=== PATIENT | male | born 1990 | race Caucasian/White ===

== ENCOUNTER 2023-05-31 06:44 | Emergency (ER) | payer BC, SELFPAY ==
[2023-05-31 06:52] VITALS: BP 164/94; PULSE 75; RESP 16; TEMP 36.4; O2SAT 98; BMI 42.4
--- NOTE | 2023-05-31 07:08 | ED.GENADULT ---
HPI - General Adult General Chief complaint: Abdominal Pain Stated complaint: RUQ abdominal pain Time Seen by Provider: 05/31/23 07:08 History of Present Illness HPI narrative: RUQ abd pain starting last , comes and goes in waves. patient was initially having some fevers and diarrhea when the symptoms started but those symptoms have mostly resolved. but continues to have episodes of pain. angelo woke this morning and the pain had returned so he decided to come have it checked out before he leaves for a road trip. reports increase in gas and loss of appetite as his only other symptoms. 33-year-old man presenting to the emergency department with concern of abdominal pain; specifically right upper abdominal pain. He described to coming in waves are colicky. Began with this discomfort in this area and DX day had an elevated temp he notes ?low-grade fever? it does seem to mean around 101. Did not have any rash. Did vomit once the following day. Yesterday had diarrhea. Took Pepto-Bismol. Right upper quadrant pain though has persisted. There was a moment where it did seem to wrap around to his back/flank. Has had poor appetite with all of this. Anticipating a road trip in to [facility] soon and wants some reassurance that everything is okay. No family history of gallbladder problems. He has not been drinking alcohol regularly anymore actually it has been at least 3 weeks since he has had a drink of alcohol. Related Data Home Medications Medication Instructions Recorded Confirmed bupropion HCl 300 mg 24 hr tablet, 300 mg PO DAILY 05/31/23 05/31/23 extended release gabapentin 300 mg capsule 300 mg PO DAILY 05/31/23 05/31/23 metformin 500 mg tablet,extended 500 mg PO DAILY 05/31/23 05/31/23 release 24 hr Allergies Allergy/AdvReac Type Severity Reaction Status Date / Time No Known Drug Allergies Allergy Verified 05/31/23 07:03 Review of Systems Status of ROS: Reports: 6 or more systems reviewed and unremarkable except as noted in History and below Exam Narrative: Exam Narrative: Pleasant. Of good energy. Heavily bearded. Wearing a face mask. Breathing easily. Lungs are clear. Heart is in regular rate and rhythm without murmur rub or gallop. Abdomen with present bowel sounds. Overweight. Soft. Negative Nelson's. No masses appreciated. No epigastric tenderness. Pain actually is reproducible along the midclavicular line on the lower rib on the right side. He says this is the general location of his pain. No rashes. Const: Vital Signs, click to edit/add: Vital Signs - 24 hr 05/31/23 06:52 Temperature 97.6 F Pulse Rate [Pulse Oximeter] 75 Respiratory Rate 16 Blood Pressure [Ri ght Upper Arm] 164/94 H Pulse Oximetry 98 Oxygen Delivery Me thod Room Air Documenting provider has reviewed patient's vital signs: yes Course Vital Signs Vital signs: Initial Vital Signs Temperature 97.6 F 05/31/23 06:52 Temperature Source Temporal Artery Scan 05/31/23 06:52 Pulse Rate 75 05/31/23 06:52 Respiratory Rate 16 05/31/23 06:52 Blood Pressure 164/94 H 05/31/23 06:52 Blood Pressure Mean 117 H 05/31/23 06:52 Blood Pressure Position Sitting 05/31/23 06:52 Pulse Oximetry 98 05/31/23 06:52 Oxygen Delivery Method Room Air 05/31/23 06:52 Vital Signs Temperature 97.6 F 05/31/23 06:52 Pulse Rate 75 05/31/23 06:52 Respiratory Rate 16 05/31/23 06:52 Blood Pressure 164/94 H 05/31/23 06:52 Pulse Oximetry 98 05/31/23 06:52 Oxygen Delivery Method Room Air 05/31/23 06:52 Temperature 97.6 F 05/31/23 06:52 Pulse Rate 75 05/31/23 06:52 Respiratory Rate 16 05/31/23 06:52 Blood Pressure 164/94 H 05/31/23 06:52 Pulse Oximetry 98 05/31/23 06:52 Oxygen Delivery Method Room Air 05/31/23 06:52 Medications Administered Medications: Discontinued Medications Generic Name Dose Route Start Last Admin Trade Name Freq PRN Reason Stop Dose Admin Lidocaine 1 patch 05/31/23 08:40 05/31/23 08:51 Lidocaine 5% Patch TRANSDERMA 05/31/23 08:41 1 patch ONCE ONE Administration Protocol Medical Decision Making MDM Narrative Medical decision making narrative: Clearly reproducible pain along the ribs would suggest costochondritis or some other strain perhaps. This may have been associated with vomiting or diarrheal episodes however he reports that this discomfort was the 1st symptom. Has had a momentary/transient flank discomfort but does not otherwise describe any urinary tract symptoms. This could have been radiating around from gallbladder. Doubt vascular disruption. Suspect enteritis type illness. He would like further evaluation for for reassurance particularly in light of upcoming travel. If transaminases or lipase is elevated, would consider limited right upper quadrant/epigastric ultrasound. At this time does not feel he needs anything for pain or nausea. Labs are reassuring. On reassessment his setting in anticipating departure. Considering normal labs and Mr. Gutiérrez appearance, would not think that further evaluation/imaging is necessary at this time. Lidocaine patches might be beneficial; discussed with him and he would like to have one placed to see how it works. See patient discharge plan for further discussion Lab Data Lab results reviewed: Yes I reviewed the patient's lab results Labs: Lab Results 05/31/23 Range/Units 07:29 WBC 6.05 (4.50-11.00) K/uL RBC 5.88 (4.30-5.90) m/uL Hgb 16.3 (13.5-17.5) gm/dL Hct 48.6 (37.0-53.0) % MCV 83 (80-100) fL MCH 28 (26-34) pg MCHC 34 (32-36) gm/dL RDW Coeff of Leonor 12.4 (11.5-15.5) % Plt Count 213 (140-440) K/uL Neut % (Auto) 69.8 (42.0-72.0) % Lymph % (Auto) 23.0 (20-44) % [place] % (Auto) 6.0 (0.0-11.0) % Eos % (Auto) 0.7 (0.0-7.0) % Baso % (Auto) 0.2 (0.0-3.0) % Neut # (Auto) 4.23 (1.7-7.0) K/uL Lymph # (Auto) 1.39 (0.90-2.90) K/uL [place] # (Auto) 0.40 (0.00-0.90) K/UL Eos # (Auto) 0.04 (0.00-0.50) K/uL Baso # (Auto) 0.01 (0.00-0.30) K/uL Abs Immat Gran (auto) 0.02 (0.00-0.30) K/uL Imm/Tot Granulo (auto) 0.3 % Sodium 138 (135-149) mmol/L Potassium 3.8 (3.6-5.1) mmol/L Chloride 103 (96-114) mmol/L Carbon Dioxide 25 (20-32) mmol/L Anion Gap 10 (7-15) mEq/L BUN 11 (5-24) mg/dL Creatinine 0.7 (0.5-1.5) mg/dL Estimated Creat Clear 167.83 Estimated GFR 126 ml/min Glucose 116 H (60-115) mg/dL Calcium 9.9 (8.4-10.6) mg/dL Total Bilirubin 1.2 (0.1-1.5) mg/dL Direct Bilirubin 0.0 (0.0-0.5) mg/dL AST 34 (12-35) U/L ALT 50 (4-50) U/L Alkaline Phosphatase 75 (40-150) U/L C-Reactive Protein 0.9 (0.5-1.0) mg/dL Total Protein 8.3 (6.0-8.3) g/dL Albumin 4.8 (3.3-5.0) g/dL Lipase 87 (23-300) U/L Discharge Plan Discharge Clinical Impression: Enteritis, Rib pain Patient Disposition: Home, Self-Care Condition: Stable Additional Instructions: If this lidocaine patch helps, they are available for purchase [id number]. You could try icing this area. Maybe a few times daily over the next few days. Or might try topical NSAID cream like Voltaren; unsure about effectivity. Can take up to 800 mg of ibuprofen or up to 1000 mg of acetaminophen per dose. Alternative to the ibuprofen could take up to 500 mg naproxen 2 times daily. You mentioned you had Gas-X tablets. Simethicone can help with the gas of course. As long as no fever or actually blood in stool, loperamide can help with diarrhea if needed. Focus on hydration. Zofran from [facility] for nausea/vomiting. Prescriptions: No Action gabapentin 300 mg capsule 300 mg PO DAILY metformin 500 mg tablet extended release 24 hr 500 mg PO DAILY bupropion HCl 300 mg tablet extended release 24 hr 300 mg PO DAILY Follow Up/Referrals: Panda Engle MD [Staff Physician] - Stand Alone Forms: [employer] Info Instructions
--- OUTSIDE RECORDS SUMMARY | 2023-05-31 07:27 | XMS_ITS | Clinical Summary ---
Author Name Unknown Organization [facility] Address [place], [place] [address] Care Team Providers Care Diagrammer And Seamer Name Role Phone Gibran Lopez DO Primary Care Provider [phone] Allergies Active Allergy Reactions Criticality Noted Date Comments Shellfish Derived Hives 08/29/2019 Medications Medication Sig Dispensed Refills Start Date End Date Status traZODone (DESYREL) 50 mg tabletIndications :Moderate episode of recurrent major depressive disorder (HC) Take 1 Tablet (50 mg) by mouth at bedtime if needed for Sleep. 30 Tablet 11/09/2020 Active metFORMIN (GLUCOPHAGE XR) 500 mg Extended-Release tabletIndications :Pre-diabetes Take 1 Tablet (500 mg) by mouth once daily with evening meal. 90 Tablet 3 04/09/2022 Active buPROPion (WELLBUTRIN XL) 300 mg Extended-Release tabletIndications :Moderate episode of recurrent major depressive disorder (HC) Take 1 Tablet (300 mg) by mouth once daily. 90 Tablet 3 04/09/2022 Active gabapentin (NEURONTIN) 300 mg capsuleIndication s:SHAWN (generalized anxiety disorder) TAKE 1 CAPSULE(300 MG) BY MOUTH EVERY DAY 30 Capsule 04/28/2023 Active CPAPIndications:O SA (obstructive sleep apnea) CPAP machine for home use at pressure 10 cmw, full face mask x1/3month with a full face cushion x1/mo 1 Each 11 05/30/2023 Active CPAPIndications:O SA (obstructive sleep apnea) CPAP machine for home use at pressure 11 cmw, full face mask x1/3month with a full face cushion x1/mo 1 Each 12/29/2021 05/30/2023 Discontinued (Reorder (E-cancel not sent)) Active Problems Problem Noted Date Diagnosed Date Prediabetes 04/09/2022 SAIMA 12/25/2020 AHI-56 01/05/2021 Elevated BP without diagnosis of hypertension Morbid obesity 11/08/2020 Transaminitis 11/08/2020 Moderate episode of recurrent major depressive d isorder 11/07/2020 Generalized anxiety disorder with panic attacks 11/07/2020 Migraine with aura and witho ut status migrainosus, not intractable 11/12/2016 Encounters Date Type Department Care Team Description 04/27/2023 Refill [facility] [address] [place] [address] Gibran Lopez, Refill Request (Gabapentin) 03/26/2023 Refill [facility] [address] [place] [address] Gibran Lopez DO Refill Request (Gabapentin) from Last 3 Months Immunizations Name Administration Dates Next Due COVID-19 vaccine (Moderna 10 0mcg/0.5mL) PF, MDV 04/16/2020,03/19/2020 Influenza, IIV4 11/21/2017,11/22/2016,11/24/2015 Meningococcal B 08/12/2016 Tdap 08/02/2019 Family History Medical History Relation Name Comments Cancer Maternal Grandfather skin Heart attack Maternal Grandfather Hypertension Maternal Grandfather Heart failure Maternal Grandmother Hypertension Maternal Grandmother Cancer Paternal Grandfather lymphom a Cancer-colon Paternal Grandmother Relation Name Status Comments Maternal Grandfather Maternal Grandmother Paternal Grandfather Paternal Grandmother Social History Tobacco Use Types Packs/Day Years Used Date Smoking Tobacco: Former Cigarettes 0.3 0.5 Smokeless Tobacco: Never Tobacco Cessation:Counseling Given: Yes Comments:quit May 2020 Alcohol Use Standard Drinks/Week Comments Yes 0 (1 standard drink = 0.6 oz pur e alcohol) 1-2x/month on avg PHQ-2 Answer Date Recorded PHQ-2 TOTAL SCORE 2 08/31/2022 Social Connections Answer Date Recorded Frequency of Communication with Friends and Fami ly Not on file 02/21/2021 Alcohol Use Answer Date Recorded How often do you have a drink containing alcohol ? 3 11/06/2020 How many drinks containing a lcohol do you have on a typical day when you are drinking? 1 11/06/2020 How often do you have five or more drinks on one occasion? 0 11/06/2020 Financial Resource Strain Answer Date R ecorded Difficulty of Paying Living Expenses Not on file 02/21/2021 Difficulty of Paying Living Expenses Not on file 02/21/2021 Sex and Gender Information Value Date Recorded Sex Assigned at Male 08/21/2020 10:14 AM CDT Gender Identity Male 08/21/2020 10:14 AM CDT Sexual Orientation Straight 08/21/2020 10 :14 AM CDT Obstetrics History Last Filed Vital Signs Vital Sign Reading Time Taken Comments Blood Pressure 131/87 04/09/2022 7:42 AM REEL SLITTER Pulse 80 04/09/2022 7:42 AM REEL SLITTER Temperature 36.6 ??C (97.9 ??F) 11/09/2020 8:45 AM CD T Respiratory Rate 18 11/09/2020 8:45 AM CDT Oxygen Saturation 98% 04/09/2022 7:42 AM REEL SLITTER Inhaled Oxygen Concentration - - Weight 145.4 kg (320 lb 8 oz) 04/09/2022 7:42 AM REEL SLITTER Height 181.3 cm (5' 11.38) 04/09/2022 7:[address] Body Mass Index 44.23 04/09/2022 7:42 AM REEL SLITTER Plan of Treatment Health Maintenance Due Date Last Done Comments COVID-19 vaccine series ( season) 2022 04/16/2020, 03/19/2020 BMI (ht and wt on same day) for age 18+ 04/09/2023 04/09/2022, 12/04/2020, 08/26/2020 Depression screening for age 12+ 09/01/2023 08/31/2022, 08/25/2022, 04/09/2022, Additional history exists Influenza for age 9-49 10/23/2023 8, 11/22/2016, 11/24/2015 Tetanus booster 08/01/2029 08/02/2019 Tdap Completed 08/02/2019 HIV for age 15-65 Completed 04/09/2022 Hepatitis C screening for age 18-79 Completed 04/09/2022 Pneumococcal series for age 6-64 Aged Out No longer eligible based on patient's age to complete this topic Procedures Procedure Name Priority Date/Time Associated Diagnosis Comments LC HIV-1/O/2, 4TH GENERATION Routine 04/09/2022 8:18 AM REEL SLITTER Screening for HIV (human immunodeficiency virus) LC HCV ANTIBODY RFX TO QUANT PCR Routine 04/09/2022 8:18 AM REEL SLITTER Need for hepatitis C screening test from Last 3 Months or Most Recently Relevant to Health Maintenance Results * LC HCV ANTIBODY RFX TO QUANT PCR (04/09/2022 8:18 AM REEL SLITTER) HCV Ab Non Reactive Non Reactive 04/13/2022 4:07 AM REEL SLITTER [facility] ([facility]) Blood BLOOD SPECIMEN / Unknown Venipuncture / Unknown 04/09/2022 8:18 AM REEL SLITTER 04/09/2022 8:19 AM REEL SLITTER Narrative [facility] - 04/13/2022 4:07 AM REEL SLITTER Performed at: ??01 - [address] ??[id number] Catalogue Librarian: Pancho Balbuena MD, Phone: ??[phone] Gibran Lopez DO LABORATORY [facility] ([facility]) [address] [place] [address] * LC HIV-1/O/2, 4TH GENERATION (04/09/2022 8:18 AM REEL SLITTER) HIV Scr 4th Gen Non Reactive Non Reactive 04/13/2022 10:[address] [facility]) Comment: HIV Negative HIV-1/HIV-2 antibodies and HIV-1 p24 antigen were NOT detected. There is no laboratory evidence of HIV infection. Blood BLOOD SPECIMEN / Unknown Venipuncture / Unknown 04/09/2022 8:18 AM REEL SLITTER 04/09/2022 8:19 AM REEL SLITTER Narrative [facility] ([facility]) - 04/13/2022 10:06 PM REEL SLITTER Performed at: ??01 - [facility] [address] [place], [place] ??[id number] Catalogue Librarian: Pancho Balbuena MD, Phone: ??[phone] Gibran Lopez DO LABORATORY [facility] ([facility]) [address] from Last 3 Months or Most Recently Relevant to Health Maintenance Advance Directives * Full Code (Latest Code Status on File) Date Activated Date Inactivated Comments 11/06/2020 10:11 PM 11/09/2020 4:16 PM Question Answer Comments Code Status Discussion: Not Discussed Care Teams Diagrammer And Seamer Relationship Specialty Start Date End Date Gibran Lopez DO [address] [place] [address] PCP - General Family Practice 08/26/20
--- OUTSIDE RECORDS SUMMARY | 2023-05-31 07:27 | XMS_ITS | Clinical Summary ---
Author Name Unknown [facility] Address [address] [place] [address] Care Team Providers Care Patrol Mother Name Role Phone No Primary/Referring, Phy Primary Care Provider Unavailable Source Comments You are receiving this document as you are listed as the primary care provider,follow-up provider, or the patient has been referred to you for consultation.This is in compliance with the Medicare and[facility] EHR Incentive Program,which states Providers who transition their patient to another setting of careor provider of care or refers their patient to another provider of care shouldprovide summary care record for each transition of care or referral. [facility] Allergies Active Allergy Reactions Criticality Noted Date Comments Shrimp (Diagnostic) Hives High 11/12/2016 Medications No known medications Active Problems Problem Noted Date Diagnosed Date Migraine with aura and witho ut status migrainosus, not intractable 11/12/2016 Immunizations Name Administration Dates Next Due Bexsero (Meningococcal Group B Vaccine) 08/13/19 17 Influenza IIV4 (Quadrivalent) 0.5mL (50389) 02/2017,11/22/2016,11/24/2015 Jynneos 11/16/2021,10/06/2021 Moderna Monovalent 12+ 04/16/2020,03/19/2020 Tdap 08/02/2019 Family History Medical History Relation Name Comments migrarine Father Coronary Artery Disease Maternal Grandfather older age Coronary Artery Disease Maternal Grandmother older age Cancer, Other Paternal Grandfather lympho ma Relation Name Status Comments Father Maternal Grandfather Maternal Grandmother Paternal Grandfather Social History Tobacco Use Types Packs/Day Years Used Date Smoking Tobacco: Never Smokeless Tobacco: Never Alcohol Use Standard Drinks/Week Comments Yes 0 (1 standard drink = 0.6 oz pur e alcohol) 1 glass per day vodka tonic Sex and Gender Information Value Date Recorded Sex Assigned at Not on file Gender Identity Not on file Sexual Orientation Not on file Last Filed Vital Signs Vital Sign Reading Time Taken Comments Blood Pressure 145/82 03/25/2017 3:16 PM VACUUM DRIER TENDER Pulse 80 03/25/2017 3:16 PM VACUUM DRIER TENDER Temperature 36.5 ??C (97.7 ??F) 03/25/2017 3:16 PM CS T Respiratory Rate 16 02/19/2017 12:1 2 PM VACUUM DRIER TENDER Oxygen Saturation 99% 03/25/2017 3:16 PM VACUUM DRIER TENDER Inhaled Oxygen Concentration - - Weight 118.6 kg (261 lb 6.4 oz) 03/25/2017 3:16 PM VACUUM DRIER TENDER Height 182.9 cm (6') 03/25/2017 3:16 PM VACUUM DRIER TENDER Body Mass Index 35.45 03/25/2017 3:16 PM VACUUM DRIER TENDER Plan of Treatment Health Maintenance Due Date Last Done Comments Hep C Screening (Preventive Services) 1992 HIV Screening (Preventive Services) 2008 HepB (1) 01/23/2011 Adult Preventive Visit 04/22/2018 04/22/2016 COVID-19 Vaccine (3 - 2022-2 4 season) 2022 04/16/2020, 03/19/2020 Influenza (#1) 2022 11/21/2017, 11/22/2016, 11/24/2015 DTaP/Tdap/Td (2 - Tdap) 08/01/2029 08/02/2019 Zoster/Shingles (1 of 2) 01/23/2042 Orthopoxvirus Completed 11/16/2021, 10/06/2021 HPV Vaccine Aged Out No longer eligi ble based on patient's age to complete this topic HepA Aged Out No longer eligi ble based on patient's age to complete this topic Hib Aged Out No longer eligi ble based on patient's age to complete this topic IPV (Polio) Aged Out No longer eligi ble based on patient's age to complete this topic MCV4 Aged Out No longer eligi ble based on patient's age to complete this topic Pneumococcal Aged Out No longer eligi ble based on patient's age to complete this topic Care Teams Patrol Mother Relationship Specialty Start Date End Date No Primary/Referring, Phy PCP - General 11/10/15
[2023-05-31 07:34] LABS: Basophils Absolute Auto 0.01 K/uL (0.00-0.30); Basophils Percent Auto 0.2 % (0.0-3.0); Eosinophils Absolute Auto 0.04 K/uL (0.00-0.50); Eosinophils Percent Auto 0.7 % (0.0-7.0); Hematocrit 48.6 % (37.0-53.0); Hemoglobin* 16.3 gm/dL (13.5-17.5); Immature Granulocytes Abs Auto 0.02 K/uL (0.00-0.30); Immature Granulocytes Pct Auto 0.3 %; Lymphocytes Absolute Auto 1.39 K/uL (0.90-2.90); Mean Corpuscular HGB Conc 34 gm/dL (32-36); Mean Corpuscular Hemoglobin 28 pg (26-34); Mean Corpuscular Volume 83 fL (80-100); Neutrophils Absolute Auto 4.23 K/uL (1.7-7.0); Neutrophils Percent Auto 69.8 % (42.0-72.0); Platelet Count* 213 K/uL (140-440); RDW Coefficient of Variation % 12.4 % (11.5-15.5); Red Blood Count 5.88 m/uL (4.30-5.90); White Blood Count* 6.05 K/uL (4.50-11.00)
[2023-05-31 07:36] LABS: Slide Review Reflex No
[2023-05-31 07:49] LABS: Albumin* 4.8 g/dL (3.3-5.0); Chloride* 103 mmol/L (96-114)
[2023-05-31 07:50] LABS: Potassium* 3.8 mmol/L (3.6-5.1); Sodium* 138 mmol/L (135-149)
[2023-05-31 07:52] LABS: Creatinine* 0.7 mg/dL (0.5-1.5); Est. Creatinine Clearance* 167.83; Estimated Glomerular Filt Rate 126 ml/min
[2023-05-31 07:53] LABS: Alanine Aminotransferase* 50 U/L (4-50); Alkaline Phosphatase* 75 U/L (40-150); Anion Gap 10 mEq/L (7-15); Aspartate Amino Transferase* 34 U/L (12-35); Bilirubin Total* 1.2 mg/dL (0.1-1.5); Blood Urea Nitrogen* 11 mg/dL (5-24); Calcium* 9.9 mg/dL (8.4-10.6); Carbon Dioxide* 25 mmol/L (20-32); Glucose* 116 mg/dL (60-115); Lipase* 87 U/L (23-300); Total Protein* 8.3 g/dL (6.0-8.3)
[2023-05-31 07:55] LABS: C Reactive Protein* 0.9 mg/dL (0.5-1.0)
[2023-05-31] MEDS: LIDOCAINE 5% PATCH 1 PATCH TRANSDERMA (08:51)
== END 2023-05-31 08:56 | disposition home or self-care (01) ==
PROVIDERS: Emergency Provider Family Medicine; PCP Student in an Organized Health Care Education/Training Program
DX: K52.9 Noninfective gastroenteritis and colitis, unspecified (principal); R07.81 Pleurodynia
CPT/HCPCS: 36415; 80048; 80076; 83690; 85025; 86140; 99283; 99284; A9270